=== PATIENT | female | born 1950 | race Caucasian/White ===

== ENCOUNTER 2017-10-08 08:48 | Day surgery (SDC) | payer MEDICARE, OTHER ==
[2017-10-08] MEDS ORDERED: LIDOCAINE 100 MG SYRINGE (09:40)
[2017-10-08] MEDS ORDERED: PROPOFOL 40 ML (09:40)
== END 2017-10-08 12:17 | disposition home or self-care (01) ==
LOC: GIL 08:48
DX: Z12.11 Encounter for screening for malignant neoplasm of colon (principal); K62.1 Rectal polyp; K64.8 Other hemorrhoids; I10 Essential (primary) hypertension; E11.9 Type 2 diabetes mellitus without complications; E78.5 Hyperlipidemia, unspecified
CPT/HCPCS: 45380; 82962; 88305